=== PATIENT | male | born 1960 | race Caucasian/White ===

== ENCOUNTER 2020-12-14 14:07 | Emergency (ER) | payer BC ==
[2020-12-14] MEDS ORDERED: Aspirin 81 MG Tab.Chew PO ONE (14:19)
[2020-12-14] MEDS ORDERED: Nitroglycerin 0.4 MG Tab.SL SL PRN (14:19)
[2020-12-14] MEDS ORDERED: Sodium Chloride 0.9% 10 ML SDV FLUSH ONE (14:28)
[2020-12-14] MEDS ORDERED: Iopamidol 755 Mg/ML 100 ML Bottle IV SCH (14:30)
[2020-12-14] MEDS ORDERED: Sodium Chloride 0.9% 100 ML IV SCH (14:30)
[2020-12-14] MEDS ORDERED: Sodium Chloride 0.9% 1,000 ML IV SCH (14:30)
--- NOTE | 2020-12-14 14:33 | EDM.PDOC ---
ED HPI GENERAL MEDICAL PROBLEM - General Chief Complaint: Chest Pain Stated Complaint: HEART ISSUE Time Seen by Provider: 12/14/20 14:20 Source of Information: Reports: Patient, RN Notes Reviewed History Limitations: Reports: No Limitations - History of Present Illness INITIAL COMMENTS - FREE TEXT/NARRATIVE: Levi presents today for complains of chest pain and low back/abdominal pain that has been getting worse the past 3 hours. He states he has been having intermittent chest pain to his upper chest radiating to bilateral arms causing numbness. He states the pain has been going away but today the pain stayed and has become worse. He reports he took ASA 81mg this morning and nitro sl that had in 2019. He reports a history of DVT, cardiac stent in 2004 and one in 2014. AAA last measured at 4.3. He denies nausea, vomiting, SOB, difficulty breathing, change in bladder/bowel function. He lives in [place], has obtained care from Dr. Mike Sharp. History of COVID19 infection February,. No COVD19 vaccination. Primary care provided by Dr. Mcke[facility], [facility], [id number]. . Chest Pain Score (Numeric/FACES): 9 denies Pain Score (Numeric/FACES): 1 - Related Data Allergies Allergy/AdvReac Type Severity Reaction Status Date / Time No Known Allergies Allergy Verified 12/14/20 14:17 Home Meds: Home Meds Albuterol Sulfate [Proair Hfa] 1 - 2 puff IH Q4H PRN 12/14/20 [History] Aspirin [Adult Low Dose Aspirin EC] 81 mg PO DAILY 12/14/20 [History] ClonazePAM [KlonoPIN] 1 mg PO BID PRN 12/14/20 [History] Fenofibrate 160 mg PO DAILY 12/14/20 [History] Fexofenadine [Meredith] 180 mg PO DAILY 12/14/20 [History] Lactobacillus Acidophilus [Probiotic] 1 each PO DAILY 12/14/20 [History] Nitroglycerin 0.4 mg SL ASDIRECTED PRN 12/14/20 [History] Ramipril [Altace] 10 mg PO BID 12/14/20 [History] Sildenafil Citrate [Viagra] 100 mg PO DAILY PRN 12/14/20 [History] amLODIPine Besylate [Norvasc] 10 mg PO DAILY 12/14/20 [History] atorvaSTATin [Lipitor] 80 mg PO DAILY 12/14/20 [History] carvediloL [Carvedilol] 25 mg PO BID 12/14/20 [History] hydroCHLOROthiazide [Hydrochlorothiazide] 12.5 mg PO DAILY 12/14/20 [History] Social & Family History - Tobacco Use Tobacco Use Status *Q: Former Tobacco User Used Tobacco, but Quit: Yes Month/Year Tobacco Last Used: 2013 - Caffeine Use Caffeine Use: Reports: Coffee - Alcohol Use Days Per Week of Alcohol Use: 7 Number of Drinks Per Day: 4 Total Drinks Per Week: 28 - Recreational Drug Use Recreational Drug Use: No ED ROS GENERAL - Review of Systems Review Of Systems: See Below Constitutional: Reports: No Symptoms HEENT: Reports: No Symptoms Respiratory: Reports: No Symptoms Cardiovascular: Reports: Chest Pain. Denies: Blood Pressure Problem, Claudication, Edema, Lightheadedness, Orthopnea, Palpitations Endocrine: Reports: No Symptoms GI/Abdominal: Reports: No Symptoms : Reports: No Symptoms Musculoskeletal: Reports: Other (back, low back pain. ) Skin: Reports: No Symptoms Neurological: Reports: No Symptoms Psychiatric: Reports: No Symptoms Hematologic/Lymphatic: Reports: No Symptoms Immunologic: Reports: No Symptoms ED EXAM, GENERAL - Physical Exam Exam: See Below Exam Limited By: No Limitations General Appearance: Alert, WD/WN, Moderate Distress Ears: Normal External Exam, Normal Canal, Hearing Grossly Normal, Normal TMs Throat/Mouth: Normal Inspection, Normal Lips, Normal Gums, Normal Oropharynx, Normal Voice, No Airway Compromise Head: Atraumatic, Normocephalic Neck: Normal Inspection, Supple, Non-Tender, Full Range of Motion. No: Lymphadenopathy (R), Lymphadenopathy (L) Respiratory/Chest: No Respiratory Distress, Lungs Clear, Normal Breath Sounds, No Accessory Muscle Use, Chest Non-Tender. No: Respiratory Distress, Crackles, Rales, Rhonchi Cardiovascular: Normal Peripheral Pulses, Regular Rate, Rhythm, No Edema, No Gallop, No Murmur, No Rub Peripheral Pulses: 4+: Radial (L), Radial (R), Dorsalis Pedis (L), Dorsalis Pedis (R) GI/Abdominal: Normal Bowel Sounds, Soft, Non-Tender, No Organomegaly, No Distention, No Abnormal Bruit, No Mass, Pelvis Stable. No: Guarding, Rigid, Rebound, Tender Back Exam: Normal Inspection, Full Range of Motion. No: CVA Tenderness (R), CVA Tenderness (L) Extremities: Normal Inspection, Normal Range of Motion, Non-Tender, Normal Capillary Refill, Other (1+ edema bilateral lower extremities) Neurological: Alert, Oriented, Normal Cognition, Normal Gait, No Motor/Sensory Deficits Psychiatric: Normal Affect, Normal Mood Skin Exam: Warm, Dry, Intact, Normal Color, No Rash. No: Diaphoretic Lymphatic: No Adenopathy #1 Interpretation EKG Date: 12/14/20 Time: 14:06 Rhythm: NSR Rate (Beats/Min): 82 Homer: Normal P-Wave: Present QRS: Normal ST-T: Normal QT: Normal Comparison: NA - No Prior EKG Course - Vital Signs Last Recorded V/S: Last Vital Signs Temp 36.7 C 12/14/20 15:32 Pulse 75 12/14/20 15:32 Resp 23 H 12/14/20 15:32 BP 144/75 H 12/14/20 15:32 Pulse Ox 95 12/14/20 15:32 - Orders/Labs/Meds Orders: Active Orders 24 hr Category Date Time Status EKG Documentation Completion [RC] ASDIRECTED Care 12/14/20 14:21 Active Heparin Sodium Med 12/14/20 15:12 Active 4,000 units IVPUSH .BOLUS PRN Heparin Sodium/D5W [Heparin 25,000 Units in D5W 500 ML] Med 12/14/20 15:15 Active 25,000 units in 500 ml IV TITRATE Iopamidol [Isovue-370 (76%)] Med 12/14/20 14:30 Active 100 ml IV . DIRECTED Nitroglycerin [Nitrostat] Med 12/14/20 14:19 Active 0.4 mg SL Q5M PRN Nitroglycerin/D5W [Nitroglycerin 25 MG/D5W 250 ML] Med 12/14/20 15:00 Active 25 mg in 250 ml IV TITRATE Sodium Chloride 0.9% [Normal Saline] 1,000 ml Med 12/14/20 14:30 Active IV ASDIRECTED Sodium Chloride 0.9% [Normal Saline] 100 ml Med 12/14/20 14:30 Active IV ASDIRECTED EKG 12 Lead [EK] Routine Ther 12/14/20 14:20 Ordered Medication Orders Heparin Sodium (Porcine) (Heparin Sodium 5,000 Units/Ml Vial) 4,000 units IVPUSH .BOLUS PRN PRN Reason: nonstemi Last Admin: 12/14/20 15:32 Dose: 4,000 units Documented by: KURT Sodium Chloride (Normal Saline) 1,000 mls @ 50 mls/hr IV ASDIRECTED PAUL Last Admin: 12/14/20 14:47 Dose: 50 mls/hr Documented by: KURT Sodium Chloride (Normal Saline) 100 mls @ 3 mls/sec IV ASDIRECTED PAUL Stop: 12/14/20 18:00 Last Admin: 12/14/20 14:55 Dose: 3 mls/sec Documented by: SAV Nitroglycerin/Dextrose (Nitroglycerin 25 Mg/D5w 250 Ml) 25 mg in 250 mls @ 6 mls/hr IV TITRATE PAUL; Protocol Last Admin: 12/14/20 15:02 Dose: 10 mcg/min, 6 mls/hr Documented by: KURT Heparin Sodium/Dextrose (Heparin 25,000 Units In D5w 500 Ml) 25,000 units in 500 mls @ 30.264 mls/hr IV TITRATE PAUL; Protocol Last Admin: 12/14/20 15:44 Dose: 7.93 units/kg/hr, 20 mls/hr Documented by: KURT Cosigned by: MARIBEL Iopamidol (Iopamidol 755 Mg/Ml 100 Ml Bottle) 100 ml IV . DIRECTED PAUL Last Admin: 12/14/20 14:55 Dose: 100 ml Documented by: SAV Nitroglycerin (Nitroglycerin 0.4 Mg Tab.Sl) 0.4 mg SL Q5M PRN PRN Reason: Chest Pain Last Admin: 12/14/20 14:30 Dose: 0.4 mg Documented by: KURT Labs: Laboratory Tests 12/14/20 12/14/20 12/14/20 Range/Units 14:23 14:23 15:53 WBC 7.2 (4.5-11.0) K/uL RBC 4.42 (4.30-5.90) M/uL Hgb 14.2 (12.0-15.0) g/dL Hct 42.1 (40.0-54.0) % MCV 95 (80-98) fL MCH 32 H (27-31) pg MCHC 34 (32-36) % Plt Count 279 (150-400) K/uL Neut % (Auto) 49.8 (36-66) % Lymph % (Auto) 37.2 (24-44) % [place] % (Auto) 8.6 H (2-6) % Eos % (Auto) 4.0 (2-4) % Baso % (Auto) 0.4 (0-1) % Sodium 141 (140-148) mmol/L Potassium 4.1 (3.6-5.2) mmol/L Chloride 102 (100-108) mmol/L Carbon Dioxide 30 (21-32) mmol/L Anion Gap 8.8 (5.0-14.0) mmol/L BUN 14 (7-18) mg/dL Creatinine 1.1 (0.8-1.3) mg/dL Est Cr Clr Drug Dosing 77.40 mL/min Estimated GFR (MDRD) > 60 (>60) Glucose 145 H (74-106) mg/dL Calcium 8.8 (8.5-10.1) mg/dL Total Bilirubin 0.3 (0.2-1.0) mg/dL AST 22 (15-37) U/L ALT 32 (12-78) U/L Alkaline Phosphatase 55 (46-116) U/L Troponin I 0.104 H* (0.000-0.056) ng/mL Total Protein 7.1 (6.4-8.2) g/dL Albumin 3.5 (3.4-5.0) g/dL Globulin 3.6 H (2.3-3.5) g/dL Albumin/Globulin Ratio 1.0 L (1.2-2.2) SARS CoV-2 RNA Rapid CHRISTINA Negative COVID negative Meds: Medications Generic Name Dose Route Start Last Admin Trade Name Freq PRN Reason Stop Dose Admin Heparin Sodium (Porcine) 4,000 units 12/14/20 15:12 12/14/20 15:32 Heparin Sodium 5,000 Units/Ml Vial IVPUSH 4,000 units .BOLUS PRN Administration nonstemi Sodium Chloride 1,000 mls @ 50 mls/hr 12/14/20 14:30 12/14/20 14:47 Normal Saline IV 50 mls/hr ASDIRECTED PAUL Administration Sodium Chloride 100 mls @ 3 mls/sec 12/14/20 14:30 12/14/20 14:55 Normal Saline IV 12/14/20 18:00 3 mls/sec ASDIRECTED PAUL Administration Nitroglycerin/Dextrose 25 mg in 250 mls @ 6 mls/hr 12/14/20 15:00 12/14/20 15:02 Nitroglycerin 25 Mg/D5w 250 Ml IV 10 mcg/min TITRATE PAUL 6 mls/hr Administration Protocol 10 MCG/MIN Heparin Sodium/Dextrose 25,000 units in 500 mls @ 30.264 mls/hr 12/14/20 15:15 12/14/20 15:44 Heparin 25,000 Units In D5w 500 Ml IV 7.93 units/kg/hr TITRATE PAUL 20 mls/hr Administration Protocol 12 UNITS/KG/HR Iopamidol 100 ml 12/14/20 14:30 12/14/20 14:55 Iopamidol 755 Mg/Ml 100 Ml Bottle IV 100 ml . DIRECTED PAUL Administration Nitroglycerin 0.4 mg 12/14/20 14:19 12/14/20 14:30 Nitroglycerin 0.4 Mg Tab.Sl SL 0.4 mg Q5M PRN Administration Chest Pain Discontinued Medications Generic Name Dose Route Start Last Admin Trade Name Freq PRN Reason Stop Dose Admin Aspirin 324 mg 12/14/20 14:19 12/14/20 14:28 Aspirin 81 Mg Tab.Chew PO 12/14/20 14:20 324 mg ONETIME ONE Administration Sodium Chloride 10 ml 12/14/20 14:28 Sodium Chloride 0.9% 10 Ml Sdv FLUSH 12/14/20 14:29 ONETIME ONE - Radiology Interpretation Free Text/Narrative:: CTA chest abdomen, pelvis reviewed per Dr. Keith, no acute findings. Radiologist read pending, we will push study to [facility]. CTA chest, abdomen and pelvis report received: Diffuse atherosclerotic vascular changes throughout the thoracic and abdominal aorta and iliac vessels. 4.7x4.3 cm infrarenal abdominal aortic aneurysm. no evidence of dissection Mild stenosis Also noted patchy groundglass opacity in the right upper lobe and right lower lobe, streaky atelectasis and/or scarring in the right lung base. - Re-Assessments/Exams Free Text/Narrative Re-Assessment/Exam: 12/14/20 15:05 Patient report to [facility] Dr. Zhao and hospitalist. NONSTEMI, elevated troponin. chest pain 1/10 Nitro gtt, heparin drip past cardiac history of stent in 2004 and 2014 Patient accepted for transfer. 12/14/20 15:[address] Mantilla-Jose Whitlock Hospitalist, all his questions were answered. He also accepts patient for transfer. Patient and his in agreement with plan. Chest pain currently 0/10. 12/14/20 16:06 Message left with Mr. Guevara's primary provider on his condition and transfer per Mr. Guevara's request. 12/14/20 16:04 Patient transfer to [facility] per ACLS. Patient stable upon transfer. 12/14/20 16:08 [facility] notified of COVID19 test negative. Departure - Departure Time of Disposition: 15:20 Disposition: DC/Tfer to Acute Hospital 02 Reason for Transfer *Q: Other (chest pain, NONSTEMI) Condition: Fair Clinical Impression: Non-STEMI (non-ST elevated myocardial infarction) Referrals: PCP,None [Primary Care Provider] - Forms: ED Department Discharge Sepsis Event Note (ED) - Evaluation Sepsis Screening Result: No Definite Risk - Focused Exam Vital Signs: Vital Signs Temp Pulse Resp BP BP BP Pulse Ox 12/14/20 15:32 36.7 C 75 23 H 144/75 H 95 12/14/20 15:07 82 22 H 155/91 H 91 L 12/14/20 14:30 174/97 H 12/14/20 14:15 36.6 C 89 22 H 174/97 H 174/97 H 89 L - My Orders Last 24 Hours: My Active Orders 12/14/20 14:19 Nitroglycerin [Nitrostat] 0.4 mg SL Q5M PRN 12/14/20 14:20 EKG 12 Lead [EK] Routine 12/14/20 14:21 EKG Documentation Completion [RC] ASDIRECTED 12/14/20 14:30 Iopamidol [Isovue-370 (76%)] 100 ml IV . DIRECTED Sodium Chloride 0.9% [Normal Saline] 1,000 ml IV ASDIRECTED Sodium Chloride 0.9% [Normal Saline] 100 ml IV ASDIRECTED 12/14/20 15:00 Nitroglycerin/D5W [Nitroglycerin 25 MG/D5W 250 ML] 25 mg in 250 ml IV TITRATE 12/14/20 15:12 Heparin Sodium 4,000 units IVPUSH .BOLUS PRN 12/14/20 15:15 Heparin Sodium/D5W [Heparin 25,000 Units in D5W 500 ML] 25,000 units in 500 ml IV TITRATE - Assessment/Plan Last 24 Hours: My Active Orders 12/14/20 14:19 Nitroglycerin [Nitrostat] 0.4 mg SL Q5M PRN 12/14/20 14:20 EKG 12 Lead [EK] Routine 12/14/20 14:21 EKG Documentation Completion [RC] ASDIRECTED 12/14/20 14:30 Iopamidol [Isovue-370 (76%)] 100 ml IV . DIRECTED Sodium Chloride 0.9% [Normal Saline] 1,000 ml IV ASDIRECTED Sodium Chloride 0.9% [Normal Saline] 100 ml IV ASDIRECTED 12/14/20 15:00 Nitroglycerin/D5W [Nitroglycerin 25 MG/D5W 250 ML] 25 mg in 250 ml IV TITRATE 12/14/20 15:12 Heparin Sodium 4,000 units IVPUSH .BOLUS PRN 12/14/20 15:15 Heparin Sodium/D5W [Heparin 25,000 Units in D5W 500 ML] 25,000 units in 500 ml IV TITRATE Assessment:: Non-STEMI Plan: Patient transfer to [facility], direct admit to Telemetry. Patient acceptance per Dr. Wilkerson and Dr. Allen [facility].
[2020-12-14] MEDS ORDERED: Nitroglycerin/D5W 25 MG/250 ML BOTTLE IV SCH (15:00)
[2020-12-14] MEDS ORDERED: Heparin Sodium 5,000 Units/ML Vial IVPUSH PRN (15:12)
[2020-12-14] MEDS ORDERED: Heparin Sodium/D5W 25,000 UNITS/500 ML BAG IV SCH (15:15)
--- NOTE | 2020-12-14 15:30 | CT ---
Ang Chest, CTA Abd Pelv w Cont CLINICAL HISTORY: Chest and low back pain TECHNIQUE: Thin section axial contiguous tomographic sections were taken through the chest after bolus IV iodinated contrast administration. Coronal and sagittal images were reconstructed. Auto dosage reduction and iterative reconstruction techniques employed. FINDINGS: The apices are off image margin. There is some patchy groundglass opacity in the right upper lobe and right lower lobe. There are some streaky atelectasis and or scarring in the right lung base. There are few benign-appearing lymph nodes in the mediastinum. Pulmonary arteries are free of filling defects is seen. There is atheromatous change in the aortic arch without aneurysm or dissection. There is tortuosity of the descending thoracic aorta has a normal caliber. IMPRESSION: No evidence of aortic aneurysm or dissection Patchy groundglass opacification in the right upper and right lower lobes. This may represent a pneumonitis Ang Chest, CTA Abd Pelv w Cont CLINICAL HISTORY: Chest and low back pain COMPARISON: None TECHNIQUE: Multiple contiguous axial sections were obtained from the level of the lung bases down through the pelvis without and with the IV infusion of iodinated contrast. Oral contrast was not administered. From these images 3D reconstructions were obtained and viewed on a dedicated and independent workstation. Auto dosage reduction and iterative reconstruction techniques employed. FINDINGS: There is some atheromatous plaque in the abdominal aorta and the visceral arteries. There is mild stenosis at the origin of the celiac trunk and SMA. There is fusiform aneurysmal dilatation of the mid abdominal aorta. The neck begins approximately 1.6 cm the left renal artery. Diameters 4.7 x 4.3 cm. This tapers above the bifurcation. Iliac arteries are mildly ectatic and tortuous with scattered calcified plaque. No retroperitoneal mass adenopathy or fluid collection is identified. The liver gallbladder and spleen have a normal contour and density. There are a few scattered granulomata. The pancreas is free of mass or inflammatory change. The adrenal glands are normal bilaterally. Kidneys are free of mass, stones or hydronephrosis. IMPRESSION: Diffuse atherosclerotic vascular changes throughout the thoracic and abdominal aorta and iliac vessels. 4.7 x 4.3 cm infrarenal abdominal aortic aneurysm. 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
== END 2020-12-14 16:10 ==
LOC: JP.ED 14:07
DX: I21.4 Non-ST elevation (NSTEMI) myocardial infarction (principal); Z87.891 Personal history of nicotine dependence; Z79.82 Long term (current) use of aspirin; Z79.899 Other long term (current) drug therapy; Z20.822 Contact with and (suspected) exposure to COVID-19
CPT/HCPCS: 36415; 71275; 74174; 80053; 84484; 85025; 87635; 93005; 96365; 96368; 99285; A9270; J1644; J3490; J7030; Q9967; U0002